=== PATIENT | male | born 1955 | race Caucasian/White ===

== ENCOUNTER 2019-11-25 20:52 | Emergency (ER) | payer MEDICARE, MEDICAID ==
[~2019-11-25] VITALS: Ht 177.8 cm; Wt 90.4 kg
[2019-11-25 20:54] VITALS: BP 136/88
--- NOTE | 2019-11-25 22:22 | NUR ---
[employer] PROVIDED FOR [facility]
== END 2019-11-25 22:23 | disposition home or self-care (01) ==
LOC: ED 22:00
DX: R60.0 Localized edema (principal); E11.9 Type 2 diabetes mellitus without complications; Z76.0 Encounter for issue of repeat prescription; Z72.9 Problem related to lifestyle, unspecified
CPT/HCPCS: 99283